=== PATIENT | female | born 1965 | race African-American/Black ===

== ENCOUNTER 2016-08-08 17:19 | Emergency (ER) | payer OTHER ==
[~2016-08-08 17:19] MED LIST: CIPROFLOXACIN500 M1 PO; FLEXERIL10 M1 PO; LORTAB 5/500 TA1 TA1 PO; MEDROL4 MG/DOSE- PO
== END 2016-08-08 18:40 | disposition home or self-care (01) ==
LOC: CED 17:19
DX: H10.9 Unspecified conjunctivitis (principal); Z88.2 Allergy status to sulfonamides; Z88.8 Allergy status to other drugs, medicaments and biological substances
CPT/HCPCS: 36415; 96361; 96374; 96375; 99284; J1885; J2765